=== PATIENT | female | born 1995 | race Caucasian/White ===

== ENCOUNTER → 2021-02-27 | Outpatient (CLI) | payer BC ==
[~2021-02-27] VITALS: Ht 162.6 cm; Wt 102.5 kg
[~2021-02-27] MED LIST: COLACE 100MG C100 MG PO; IBU600 MG PO; NORCO 10-325 T1 EACH PO; NORCO 5-325 TA1 EACH PO; PRENATABS RX T1 EACH PO
== END ==
LOC: EROP 11:29
DX: O98.519 Other viral diseases complicating pregnancy, unspecified trimester (principal); U07.1 COVID-19; J98.4 Other disorders of lung; Z23 Encounter for immunization; Z3A.00 Weeks of gestation of pregnancy not specified
CPT/HCPCS: M0247; Q0247